=== PATIENT | male | born 1955 | race Caucasian/White ===

== ENCOUNTER 2018-02-04 11:12 | Day surgery (SDC) | payer OTHER ==
[2018-01-30 10:18] LABS: HEMATOCRIT 45.2 % (37.9-51.0); HEMOGLOBIN 15.6 g/dL (13.5-17.0); MEAN CORPUSCULAR HEMOGLOBIN 31.6 pg (27.0-33.4); MEAN CORPUSCULAR HGB CONC 34.4 g/dL (32.0-36.0); MEAN CORPUSCULAR VOLUME 92 fl (80-97); PLATELET COUNT 317 10^3/uL (150-450); RED BLOOD COUNT 4.93 10^6/uL (4.35-5.55); RED CELL DISTRIBUTION WIDTH 12.4 % (11.5-14.0); WHITE BLOOD COUNT 9.5 10^3/uL (4.0-10.5)
[2018-01-30 10:49] LABS: ALANINE AMINOTRANSFERASE 27 U/L (21-72); ALBUMIN 4.1 g/dL (3.5-5.0); ALKALINE PHOSPHATASE 78 U/L (38-126); ANION GAP 9 (5-19); ASPARTATE AMINO TRANSFERASE 21 U/L (17-59); BILIRUBIN,DIRECT 0.2 mg/dL (0.0-0.4); BILIRUBIN,TOTAL 0.5 mg/dL (0.2-1.3); BLOOD UREA NITROGEN 10 mg/dL (7-20); CALCIUM 9.8 mg/dL (8.4-10.2); CARBON DIOXIDE 30 mmol/L (22-30); CHLORIDE 102 mmol/L (98-107); GLUCOSE 90 mg/dL (75-110); POTASSIUM 4.9 mmol/L (3.6-5.0); SODIUM 140.5 mmol/L (137-145); TOTAL PROTEIN 6.2 g/dL (6.3-8.2)
--- NOTE | 2018-01-30 12:28 | RADIOLOGY REPORT (SQ) ---
EXAM DESCRIPTION: CHEST PA/LATERAL COMPLETED DATE/TIME: 01/30/2018 10:32 am REASON FOR STUDY: PRE-OP COMPARISON: None. EXAM PARAMETERS: NUMBER OF VIEWS: two views TECHNIQUE: Digital Frontal and Lateral radiographic views of the chest acquired. RADIATION DOSE: NA LIMITATIONS: none FINDINGS: LUNGS AND PLEURA: There is mild hyperexpansion of the lungs. There are no infiltrates or effusions. No mass is seen. MEDIASTINUM AND HILAR STRUCTURES: No masses or contour abnormalities. HEART AND VASCULAR STRUCTURES: Heart normal size. No evidence for failure. BONES: No acute findings. HARDWARE: None in the chest. OTHER: No other significant finding. IMPRESSION: Mild chronic lung changes with no acute cardiopulmonary disease. TECHNICAL DOCUMENTATION: JOB ID: [id number] [employer]- All Rights Reserved Reading location - IP/workstation name: [email or web address]
--- NOTE | 2018-01-30 21:57 | EKG REPORT ---
SEVERITY:- BORDERLINE ECG - SINUS RHYTHM TALL R WAVE IN V2, CONSIDER RVH OR PMI : Confirmed by: Mary Aguirre 30-Jan-2018 21:56:56
[~2018-02-04 11:12] MED LIST: ACETAMINOPHEN 325 MG TABLET PO PRN; CEFAZOLIN 1 GM/D5W RTU 1 GM/50 ML RTUPB IV PRN; DEXAMETHASONE SOD PHOSPHATE INJ 4 MG/1 ML VIAL ONE; GLYCOPYRROLATE INJ 0.4 MG/2 ML VIAL ONE; KETOROLAC TROMETHAMINE 60 MG/2 ML SDV ONE; LACTATED RINGERS 1000 ML IV PRN; LIDOCAINE 0.5% INJ-PF (5 MG/ML) 50 ML SDV SUBCUT PRN; MIDAZOLAM 2 MG/2 ML INJ IV PRN; ONDANSETRON HCL INJ/PF 4 MG/2 ML SDV ONE; SUCCINYLCHOLINE CHLORIDE INJ 200 MG/10 ML VIAL ONE
[2018-02-04] MEDS ORDERED: LIDOCAINE 2% INJ-PF (20 MG/ML) 10 ML AMPUL ONE (13:15)
[2018-02-04] MEDS ORDERED: EPHEDRINE SULFATE INJ 50 MG/1 ML AMPULE ONE (13:15)
[2018-02-04] MEDS ORDERED: FENTANYL CITRATE INJ/PF 100 MCG/2 ML AMPUL ONE (13:15)
[2018-02-04] MEDS ORDERED: MIDAZOLAM 2 MG/2 ML INJ ONE (13:15)
[2018-02-04] MEDS ORDERED: PROPOFOL INJ 200 MG/20 ML VIAL IV ONE (13:16)
[2018-02-04] MEDS ORDERED: ACETAMINOPHEN 100 ML IV ONE (13:16)
[2018-02-04] MEDS ORDERED: BUPIVACAINE HCL 0.25 % INJ/PF (2.5 MG/1 ML) 30 ML VIAL ONE (13:17)
[2018-02-04] MEDS ORDERED: BUPIVACAINE INJ/PF LIPOSOME/PF 266 MG/20 ML SDV ONE (13:17)
[2018-02-04] MEDS ORDERED: FENTANYL CITRATE INJ/PF 250 MCG/5 ML AMPULE ONE (13:50)
[2018-02-04] MEDS ORDERED: PROMETHAZINE HCL INJ 25 MG/1 ML VIAL IV PRN ×2 (14:13)
[2018-02-04] MEDS ORDERED: MEPERIDINE HCL/PF INJ 25 MG/1 ML DISP.SYRIN IV PRN (14:13)
[2018-02-04] MEDS ORDERED: FENTANYL CITRATE INJ/PF 100 MCG/2 ML AMPUL IV PRN ×3 (14:13)
[2018-02-04] MEDS ORDERED: OXYCODONE-ACETAMINOPHEN 5-325 MG TABLET PO PRN ×3 (14:13→15:07)
[2018-02-04] MEDS ORDERED: ONDANSETRON HCL INJ/PF 4 MG/2 ML SDV IV PRN ×2 (14:13→15:07)
[2018-02-04] MEDS ORDERED: DIPHENHYDRAMINE HCL 50 MG/ML VIAL IV PRN (14:13)
[2018-02-04] MEDS ORDERED: MORPHINE SULFATE 10 MG/ML INJ IV PRN (14:13)
--- NOTE | 2018-02-04 15:07 | Discharge Summary ---
Discharge Summary (SDC) - Discharge Final Diagnosis: Left inguinal hernia Date of Surgery: 02/04/18 Discharge Date: 02/04/18 Condition: Stable Treatment or Instructions: [facility] [address], [place] [address] Discharge Instructions: Open Abdominal Procedures (Hernia, Bowel Surgery) 1.General Information: a. DO NOT DRIVE a car or operative machinery for 1-2 weeks or as long as taking Narcotic pain medication. b. DO NOT consume alcohol, tranquilizers, sleeping medication, or any non- prescribed medication for 24 hours unless approved by your doctor or as long as taking pain medication. c. DO NOT make important decisions or sign any important papers for the first 24 hours after surgery. d. When discharged home the same day as surgery have a responsible person with you the first night. 2.Activity Restriction: 8 weeks; a. Avoid heavy lifting (> 10-15 lbs), straining abdominal muscles and sports, mowing lawn, vacuum home restoration service cleaner and bending over a lot. b. Walking is important to avoid blood clots in the legs and deep breathing can prevent pneumonia. c. If it fine to go for walks, up and down steps, and ride in a car. 3.Treatment: a. You may shower the next day. Do not remove the skin glue, it will fall off on its own. You should not bathe in a tub or go swimming for 2 weeks. c. Do not use oils, powders, or lotion on your incision. 4.Medications: a. You may take narcotic prescription tablets for pain if needed, one every 5 hours (__Toradol__). c. You may resume all normal medications unless a change is specified by your doctors. 5.Diet: a. If going home the same day as surgery start with clear liquids, and if you do well then advance to normal foods low inf fat and protein. Smaller portion size may be jane the first night. b. When discharged after hospital stay you may resume a normal diet. 6.Notify Physician If: a. Pain is not relieved by pain medication b. Persistent nausea and vomiting c. Chills, fever (above 101) d. Persistent bleeding or swelling at the operative site e. Unable to urinate for 6-8 hours f. Increased redness, drainage, or foul smelling discharge from incision 7. Follow Up Care: a. Please call our office to schedule an appointment with your doctor for 2 weeks. In the event of any postoperative problems or questions you may call our office during business hours or the On-Call surgeon through the recordak operator at [facility]. [facility] [phone] [facility] [phone] (Ask for the surgeon e business consultant) b. I understand the instructions for my postoperative care as described above and a copy has been given to me. _ Witness Patient/Significant Other Date Prescriptions: Ketorolac Tromethamine [Toradol 10 mg Tablet] 10 mg PO Q6HP PRN #20 tablet PRN Reason: Referrals: ANIYA MARCUS MD [Primary Care Provider] - Discharge Diet: As Tolerated Discharge Activity: No Lifting Over 10 Pounds, Walk Frequently Report the Following to Your Physician Immediately: Nausea, Vomiting, Fever over 101 Degrees, Unusual Bleeding, Redness, Drainage-Foul Smelling
--- NOTE | 2018-02-04 15:24 | Operative Report ---
Operative Report DATE OF SURGERY: 02/04/18 PREOPERATIVE DIAGNOSIS: Left inguinal hernia symptomatic, reducible POSTOPERATIVE DIAGNOSIS: Double or pantaloon hernia left inguinal region OPERATION: 1. Exploration left inguinal region. 2. Left inguinal herniorrhaphy with large [facility] Prolene hernia system SURGEON: CANDIE GALLEGOS 1ST JACK WINDER: LUKAS SAPP ANESTHESIA: GA TISSUE REMOVED OR ALTERED: None COMPLICATIONS: None ESTIMATED BLOOD LOSS: None INTRAOPERATIVE FINDINGS: see below PROCEDURE: The patient was seen in the preop holding her with a left inguinal area was marked. The patient was then taken to the main operating where general anesthesia was induced. Surgical plan and surgical timeout were conducted. The left inguinal area was prepped and draped in sterile fashion. Hair had been previously clipped. It was anesthetized with quarter percent Marcaine. A standard left inguinal herniorrhaphy incision made approximately 6 cm long. Subcutaneous tissue May's fascia divided with electrocautery. The branching manias vein was ligated but laterally and divided. The external oblique aponeurosis was opened after anesthetizing the deeper tissues with Marcaine. Contents of the inguinal canal mobilized. The genitofemoral and ilioinguinal nerves were identified and preserved throughout the dissection. Mobilization of the prolapsing tissue revealed a direct hernia medial to the epigastric vessels which consisted of large eventration of the floor of the inguinal canal and some fat. In addition there was a indirect hernia which consisted of a large cord lipoma. Therefore had a pantaloon or double inguinal hernia. Both the prolapsing masses were mobilized to the origination points. Direct component, there was no sac to resect. For the indirect component, the lipoma cord was transected at its base and oversewn with a 2-0 Vicryl suture. The floor of the canal, and surrounding structures were cleared of any splayed cremasteric fibers. I opened up the retroperitoneum at the point of origination of the cord lipoma. I got into the retroperitoneal space nicely using blunt and gauze dissection. We then brought onto the field a non- large Prolene hernia system and deployed the inner component into the retroperitoneal cavity; the external component was then trimmed to an appropriate configuration, and stitch with approximately 7 to 8 sutures, 0 PDS, to Poupart ligament and conjoined tendon, again careful to have the nerves in complete visualization. An upside down U was created in the 6 o'clock position of the external component of the mesh to re-create the new internal ring. Once this was achieved, we allowed right testicle to descend back into the right hemiscrotum, and then we closed the external oblique with 2-0 Vicryl suture May's fascia with 3-0 Vicryl suture skin with 3-0 Vicryl, Dermabond glue. Full-strength Exparel deployed into the subcutaneous tissues. Patient tolerated procedure well, extubated, taken recovery in stable condition. The physician registrar assistant, Ms. Resendiz, provided assistance during this case by: Assisting, retracting tissue, instillation of local anesthesia and closure of skin incisions.
[2018-02-04 17:21] VITALS: BP 129/82
== END 2018-02-04 17:05 | disposition home or self-care (01) ==
LOC: OROUT 11:12
PROVIDERS: ATTEND Surgery
DX: K40.90 Unilateral inguinal hernia, without obstruction or gangrene, not specified as recurrent (principal); D17.6 Benign lipomatous neoplasm of spermatic cord; I10 Essential (primary) hypertension; M19.90 Unspecified osteoarthritis, unspecified site; F17.210 Nicotine dependence, cigarettes, uncomplicated; Z79.899 Other long term (current) drug therapy; Z79.1 Long term (current) use of non-steroidal anti-inflammatories (NSAID)
CPT/HCPCS: 93005; 36415; 85027; 80053; 71046; 93010; 49505; C1781; J2250; J0690; J1100; J3490 ×2; J1885; J3010 ×2; J0330; J2405; J2704; J0131; C9290; 830; 88302

== ENCOUNTER → 2020-09-21 | Outpatient (CLI) | payer OTHER ==
[2020-09-21 12:13] LABS: ABSOLUTE EOSINOPHILS # (AUTO) 0.1 10^3/uL (0.0-0.6); ABSOLUTE LYMPHOCYTES (AUTO) 2.6 10^3/uL (0.5-4.7); ABSOLUTE MONOCYTES (AUTO) 0.6 10^3/uL (0.1-1.4); ABSOLUTE NEUT (AUTO) 6.8 10^3/uL (1.7-8.2); BASOPHILS % (AUTO) 0.3 % (0-2); EOSINOPHILS % (AUTO) 0.6 % (0-6); HEMATOCRIT 45.9 % (37.9-51.0); HEMOGLOBIN 15.8 g/dL (13.5-17.0); LYMPHOCYTES % (AUTO) 25.5 % (13-45); MEAN CORPUSCULAR HEMOGLOBIN 32.3 pg (27.0-33.4); MEAN CORPUSCULAR HGB CONC 34.5 g/dL (32.0-36.0); MEAN CORPUSCULAR VOLUME 94 fl (80-97); MONOCYTES % (AUTO) 5.7 % (3-13); PLATELET COUNT 345 10^3/uL (150-450); RED CELL DISTRIBUTION WIDTH 13.2 % (11.5-14.0); SEGMENTED NEUTROPHILS % (AUTO) 67.9 % (42-78); TOTAL CELLS COUNTED % (AUTO) 100 %
[2020-09-21 12:42] LABS: ALBUMIN 4.5 g/dL (3.5-5.0); ALKALINE PHOSPHATASE 92 U/L (38-126); ANION GAP 11 (5-19); ASPARTATE AMINO TRANSFERASE 32 U/L (17-59); BILIRUBIN,DIRECT 0.1 mg/dL (0.0-0.4); BILIRUBIN,TOTAL 0.7 mg/dL (0.2-1.3); BLOOD UREA NITROGEN 12 mg/dL (7-20); CALCIUM 9.9 mg/dL (8.4-10.2); CARBON DIOXIDE 27 mmol/L (22-30); CHLORIDE 98 mmol/L (98-107); CHOLESTEROL 199.49 mg/dL (0-200); GLUCOSE 88 mg/dL (75-110); POTASSIUM 4.4 mmol/L (3.6-5.0); TOTAL PROTEIN 7.1 g/dL (6.3-8.2); TRIGLYCERIDES 105 mg/dL (<150)
[2020-09-21 12:53] LABS: DIRECT LDL 143 mg/dL (<100)
== END ==
LOC: OD 11:12
PROVIDERS: ATTEND Internal Medicine
DX: I10 Essential (primary) hypertension (principal); E78.00 Pure hypercholesterolemia, unspecified; Z79.899 Other long term (current) drug therapy
CPT/HCPCS: 36415; 80053; 80061; 85025

== ENCOUNTER 2020-11-05 16:37 | Emergency (ER) | payer OTHER ==
--- NOTE | 2020-11-05 17:53 | ER Document Report ---
ED Medical Screen (RME) - General Chief Complaint: Psych Problem Stated Complaint: PSYCH EVAL/SUICIDAL IDEATION Time Seen by Provider: 11/05/20 17:49 Primary Care Provider: ANIYA MARCUS MD [Primary Care Provider] - Follow up as needed Mode of Arrival: Ambulatory Information source: Patient, Outside Facility Records - Mobile crisis Notes: 64-year-old male presented to ED for suicidal ideations with the presence of mobile plant and equipment worker. He has had multiple issues in the past of suicidal thoughts and not caring for himself. Sister came and was staying with him for the last 5 days to help him with his bills and get things under control she left yesterday and he was informed today that she was found in the Pending sale to [facility] either last night or this morning. This is exacerbated his thoughts of suicide I have greeted and performed a rapid initial assessment of this patient. A comprehensive ED assessment and evaluation of the patient, analysis of test results and completion of medical decision making process will be conducted by an additional ED providers. TRAVEL OUTSIDE OF THE [place] IN LAST 30 DAYS: No - Related Data Allergies/Adverse Reactions: No Known Allergies Allergy (Verified 11/05/20 17:35) Past Medical History - Social History Chew tobacco use (# tins/day): No Frequency of alcohol use: None - Past Medical History Cardiac Medical History: Reports: Hx Hypertension Denies: Hx Coronary Artery Disease, Hx Heart Attack Pulmonary Medical History: Denies: Hx Asthma, Hx Bronchitis, Hx COPD, Hx Pneumonia Neurological Medical History: Denies: Hx Cerebrovascular Accident, Hx Seizures Musculoskeltal Medical History: Denies Hx Arthritis - Immunizations Hx Diphtheria, Pertussis, Tetanus Vaccination: Yes Physical Exam - Vital signs Vitals: Temp Pulse Resp BP Pulse Ox 98.1 F 75 16 120/67 97 11/05/20 16:41 11/05/20 16:41 11/05/20 16:41 11/05/20 16:41 11/05/20 16:41 Course - Vital Signs Vital signs: Temp Pulse Resp BP Pulse Ox 98.1 F 75 16 120/67 97 11/05/20 16:41 11/05/20 16:41 11/05/20 16:41 11/05/20 16:41 11/05/20 16:41 Doctor's Discharge - Discharge Referrals: ANIYA MARCUS MD [Primary Care Provider] - Follow up as needed
[2020-11-05 19:46] LABS: ABSOLUTE BASOPHILS # (AUTO) 0.1 10^3/uL (0.0-0.2); ABSOLUTE LYMPHOCYTES (AUTO) 2.3 10^3/uL (0.5-4.7); ABSOLUTE MONOCYTES (AUTO) 0.6 10^3/uL (0.1-1.4); ABSOLUTE NEUT (AUTO) 7.9 10^3/uL (1.7-8.2); EOSINOPHILS % (AUTO) 0.3 % (0-6); HEMATOCRIT 41.3 % (37.9-51.0); HEMOGLOBIN 14.9 g/dL (13.5-17.0); MEAN CORPUSCULAR HEMOGLOBIN 33.2 pg (27.0-33.4); MEAN CORPUSCULAR HGB CONC 36.1 g/dL (32.0-36.0); MEAN CORPUSCULAR VOLUME 92 fl (80-97); MONOCYTES % (AUTO) 5.3 % (3-13); PLATELET COUNT 344 10^3/uL (150-450); RED BLOOD COUNT 4.51 10^6/uL (4.35-5.55); RED CELL DISTRIBUTION WIDTH 12.7 % (11.5-14.0); SEGMENTED NEUTROPHILS % (AUTO) 72.4 % (42-78); TOTAL CELLS COUNTED % (AUTO) 100 %
[2020-11-05 20:03] LABS: ALBUMIN 4.4 g/dL (3.5-5.0); ALKALINE PHOSPHATASE 92 U/L (38-126); ANION GAP 7 (5-19); ASPARTATE AMINO TRANSFERASE 50 U/L (17-59); BILIRUBIN,TOTAL 0.9 mg/dL (0.2-1.3); BLOOD UREA NITROGEN 12 mg/dL (7-20); CALCIUM 9.7 mg/dL (8.4-10.2); CARBON DIOXIDE 26 mmol/L (22-30); CHLORIDE 98 mmol/L (98-107); GLUCOSE 79 mg/dL (75-110); POTASSIUM 4.4 mmol/L (3.6-5.0); TOTAL PROTEIN 6.9 g/dL (6.3-8.2)
[2020-11-05 20:04] LABS: ACETAMINOPHEN < 10 ug/mL (10-30); ALCOHOL < 10 mg/dL (NONE DETECTED); SALICYLATE < 1.0 mg/dL (2.0-20.0)
[2020-11-05 20:16] LABS: APPEARANCE,URINE CLEAR; BILIRUBIN,URINE NEGATIVE (NEGATIVE); COLOR,URINE STRAW; GLUCOSE, URINE NEGATIVE (NEGATIVE); KETONES,URINE 20 mg/dL (NEGATIVE); LEUKOCYTE ESTERASE,URINE NEGATIVE (NEGATIVE); NITRITE,URINE NEGATIVE (NEGATIVE); PROTEIN,URINE NEGATIVE (NEGATIVE); URINE SPECIFIC GRAVITY 1.005; UROBILINOGEN,URINE NEGATIVE mg/dL (<2.0)
--- NOTE | 2020-11-05 20:27 | PSYCHOLOGICAL NOTE ---
Psych Note - Psych Note Date seen by psych provider: 11/05/20 Time seen by psych provider: 18:30 Psych Note: Reason for consult: Suicidal ideation Patient arrived to [facility] ED via POV in the company of mobile crisis for concerns of suicidal ideation and being unable to care for himself. Patient confirms he was talking with mobile crisis and disclosed passive suicidal ideation ie no plans, mean or intent. He disclosed that he did not believe he can do all the things that need to get done without his sister. He reports feeling overwhelmed and wants to stay at the hospital. Patient become distraught at learning there is no "72 hour" in the state of [place] and reports he just can't sleep and doesn't know what he is going to do. Patient is alert and orientated to person, place, time and circumstance. Patient is currently suffering from acute grief after finding out his sister committed suicide this morning. Patient reports passive suicidal ideation i.e. no plans means or intent. Delusions are absent and behaviors congruent with an intact reality based presentation i.e. organized and near thought process. Eye contact is fair. Conversational speech is within normal rate, tone and prosody. Patient is well-groomed however does request to take a shower upon arrival to [facility] ED. Patient does have some difficulty staying on topic and dwelling thoughts on losing his sister; this would be congruent with acute stress/bereavement. Attention and concentration is fair. Insight, judgment, impulse control is fair. IVC Criteria per [place] GS 122C Dangerous to others Within the relevant past the individual No has inflicted or attempted to inflict or threatened to inflict serious bodily harm on another AND No that there is a reasonable probability that this conduct will be repeated as there is an absence of supervision or structure to prevent. OR No has acted in such a way as to create a substantial risk of serious bodily harm to another AND No that there is a reasonable probability that this conduct will be repeated as there is an absence of supervision or structure to prevent. OR No has engaged in extreme destruction of property AND NO that there is a reasonable probability that this conduct will be repeated as there is an absence of supervision or structure to prevent. Previous episodes of dangerousness to others, when applicable, may be considered when determining reasonable probability of future dangerous conduct. Clear, cogent, and convincing evidence that an individual has committed a homicide in the relevant past is prima facie evidence of dangerousness to others. Dangerous to self Within the relevant past the individual has done any of the following: acted in such a way as to show ALL of the following: No The individual would be unable without care, supervision, and the continued assistance of others not otherwise available, to exercise self- control, judgment, and discretion in the conduct of the individual's daily responsibilities and social relations or to satisfy the individual's need for nourishment, personal or medical care, penitentiary, or self-protection and safety. AND No There is a reasonable probability of the individual suffering serious physical debilitation within the near future unless adequate treatment is given. A showing of behavior that is grossly irrational, of actions that the individual is unable to control, of behavior that is grossly inappropriate to the situation, or of other evidence of severely impaired insight and judgment shall create a prima facie inference that the individual is unable to care for himself or herself. Patient reports this; however, he is able to ambulate without assistance, there is not evidence that he has not be eating, drinking or bathing himself. Patient asked to take a shower upon arrival even though he appeared well groomed. OR YES has attempted suicide or threatened suicide AND No that there is a reasonable probability of suicide unless adequate treatment is given as there is an absence of supervision or structure to prevent suicide of patient who has made an attempt, serious gesture or threat. Patient reports passive suicidal ideation ie no plans mean or intent. He came in voluntarily. Patient has multiple external agencies assisting him to include D, community paramedics (which has a scheduled home visit with the patient in the morning) in addition to receiving resources for grief from [facility]. OR No has mutilated himself or herself or attempted to mutilate himself or herself AND No that there is a reasonable probability of serious self-mutilation unless adequate treatment is given as there is an absence of supervision or structure to prevent. NOTE: Previous episodes of dangerousness to self, when applicable, may be considered when determining reasonable probability of physical debilitation, suicide, or self-mutilation. Impression\\plan: Patient is cleared from acute psychiatric services. Patient has been assessed by multiple agencies throughout the day after finding out his sister committed suicide this morning. Crisis plans were in place with community paramedics coming to his home to make visits. [facility] was asked to come and provide additional resources however after spending 2 hours with the patient brought the patient to the hospital do to passive suicidal ideation. It is noted the patient had already been evaluated for passive suicidal ideation by Dr. Rausch in the field this morning; there has been no new changes. There was concerns identified by mobile crisis that the patient identified being unable to care for himself. This comment by the patient cannot be supported due to the patient's presentation of being well groomed, asking to take a shower, [facility] and EMS was in the home and did not have concerns that is was unfit or unlivable and current presentation and lab work does not support malnourished and/or dehydrated (per medical). Patient is currently suffer acute grief from finding out his sister committed suicide this morning. Dr. Rausch was consulted to care management of this patient; attending physicians in agreement with recommendations and disposition.
[2020-11-05 20:29] LABS: URINE AMPHETAMINES SCREEN NEGATIVE; URINE BARBITURATES SCREEN NEGATIVE; URINE BENZODIAZEPINES SCREEN NEGATIVE; URINE COCAINE SCREEN NEGATIVE; URINE MARIJUANA (THC) SCREEN NEGATIVE; URINE METHADONE SCREEN NEGATIVE; URINE PHENCYCLIDINE SCREEN NEGATIVE
--- NOTE | 2020-11-05 20:55 | ER Document Report ---
ED General - General Chief Complaint: Psych Problem Stated Complaint: PSYCH EVAL/SUICIDAL IDEATION Time Seen by Provider: 11/05/20 17:49 Primary Care Provider: ANIYA MARCUS MD [Primary Care Provider] - Follow up as needed Mode of Arrival: Ambulatory TRAVEL OUTSIDE OF THE [place] IN LAST 30 DAYS: No - HPI Context: Chief Complaint: [Suicidal ideation] [ This is a 64-year-old male who presents to the emergency department complaining of suicidal ideation. Patient states that he found out that his sister who lives with committed suicide with a self-inflicted gunshot wound yesterday. Patient states "it is my fault" regard to the reason why his sister committed suicide. ] History obtained from [patient] Symptoms began:[Today] Onset: [Sudden] Timing: [Sudden] Quality: [Overwhelming per patient] Intensity: [Severe] Location: [Psychiatric] Radiation: [Denies] [The pain does not migrate to a new location.] Aggravating factors: Sisters recent suicide Relieving factors: [none] [Denies] SOB [Denies] nausea [Denies] vomiting [Denies] sweats [Denies] fever [Denies] cough [Denies] calf or leg swelling or pain - Related Data Allergies/Adverse Reactions: No Known Allergies Allergy (Verified 11/05/20 17:35) Past Medical History - General Information source: Patient, Outside Facility Records - Mobile crisis - Social History Smoking Status: Unknown if Ever Smoked Chew tobacco use (# tins/day): No Frequency of alcohol use: None Family History: Reviewed & Not Pertinent - Past Medical History Cardiac Medical History: Reports: Hx Hypertension Denies: Hx Coronary Artery Disease, Hx Heart Attack Pulmonary Medical History: Denies: Hx Asthma, Hx Bronchitis, Hx COPD, Hx Pneumonia Neurological Medical History: Denies: Hx Cerebrovascular Accident, Hx Seizures Musculoskeletal Medical History: Denies Hx Arthritis - Immunizations Hx Diphtheria, Pertussis, Tetanus Vaccination: Yes Review of Systems - Review of Systems Notes: Review of systems as below unless otherwise stated in HPI. CONSTITUTIONAL [No] fever, [No] chills. EYES [No] eye pain. ENT [No] URI symptoms, [No] sore throat, [No] ear pain. CARDIOVASCULAR [No] chest pain, [No] palpitations, [No] edema. RESPIRATORY [No] Cough, [No] SOB, [No] wheezing. GASTROINTESTINAL [No] abdominal pain, [No] nausea, [No] Diarrhea, [No] Vomiting, [No] constipation, [No] melena, [No] rectal bleeding. GENITOURINARY [No] dysuria, [No] urinary frequency, [No] hematuria, [No] urinary urgency MUSCULOSKELETAL [No] Back pain. SKIN [No] Rash. NEUROLOGIC [No] Headache, [No] recent seizures, [No] paralysis,[No] parathesias. ENDOCRINE [No] polyuria. HEMO/LYMPATIC [No] easy brusing PSYCHIATRIC Positive suicidal ideation, positive anxiety Physical Exam - Vital signs Vitals: Temp Pulse Resp BP Pulse Ox 98.1 F 75 16 120/67 97 11/05/20 16:41 11/05/20 16:41 11/05/20 16:41 11/05/20 16:41 11/05/20 16:41 - Notes Notes: CONSTITUTIONAL [Vital signs reviewed, Patient appears anxious, Alert and oriented X 3, HEAD [Atraumatic, Normocephalic.] EYES [Eyes are normal to inspection, No discharge from eyes, Extraocular muscles intact, Sclera are normal, Conjunctiva are normal.] ENT [External ears normal to inspection, Nose examination normal, Mouth normal to inspection.] NECK [Normal ROM, No jugular venous distention, No meningeal signs, ] RESPIRATORY CHEST [Chest is nontender, Breath sounds normal, No respiratory distress.] CARDIOVASCULAR [RRR, No murmurs, Normal S1 S2, No rub, No gallop.] ABDOMEN [Abdomen is nontender, No pulsatile masses, No other masses, Bowel sounds normal, No distension, No peritoneal signs, No hernias.] BACK [There is no CVA Tenderness, There is no tenderness to palpation, Normal inspection.] UPPER EXTREMITY [Inspection normal, No cyanosis, No clubbing, No edema, LOWER EXTREMITY [Inspection normal, No cyanosis, No clubbing, No edema, No calf tenderness, NEURO [No focal motor deficits, No focal sensory deficits, Speech normal.] SKIN [Skin is warm, Skin is dry, Skin is normal color.] LYMPHATIC [No adenopathy in neck.] PSYCHIATRIC Patient is admitting to suicidal ideation. Patient has a labile affect, tearful at times, tends to ramble and has tangential speech. His thoughts are "jumbled" and he jumps from one different topic to another and seems to have difficulty answering simple straightforward questions. Patient is repeatedly stating that it is his fault that his sister committed suicide and cannot be convinced otherwise. Course - Re-evaluation Re-evalutation: 11/05/20 21:07 Patient is medically cleared. Patient admits to suicidal ideation and seems to be in very acute emotional distress. I believe he is a danger to himself and I am taking out involuntary commitment papers based on my findings. - Vital Signs Vital signs: Temp Pulse Resp BP Pulse Ox 98.4 F 76 20 123/77 94 11/05/20 17:49 11/05/20 17:49 11/05/20 17:49 11/05/20 17:49 11/05/20 17:49 - Laboratory Results Result Diagrams: 11/05/20 19:30 11/05/20 19:30 Laboratory Results Interpreted: 11/05/20 11/05/20 11/05/20 19:30 19:30 19:57 WBC 11.0 H MCHC 36.1 H Sodium 131.0 L Urine Ketones 20 H Urine Blood SMALL H Salicylates < 1.0 L Acetaminophen < 10 L Critical Laboratory Results Reviewed: No Critical Results Attending or Supervising Physician who Reviewed Labs: LYNN BRIDGES IV - Radiology Results Critical Radiology Results Reviewed: No Critical Results - EKG Interpretation by Me Additional EKG results interpreted by me: 11/05/20 21:08 EKG obtained on 11/05/2020 at 2053 hrs. was interpreted by this MD. Findings: Normal sinus rhythm, rate 64, normal axis, SC interval appears to be within normal limits, P waves preceding QRS complexes, QRS complexes appear narrow, QTC is 438, there are no obvious patterns of ST segment elevation, depression or reciprocal changes seen to suggest acute myocardial ischemia or infarction. There is no prior EKG immediately available for comparison. Impression: Normal sinus rhythm with nonspecific ST segments. Discharge - Discharge Clinical Impression: Suicidal ideation, Involuntary commitment Condition: Stable Disposition: OTHER Referrals: ANIYA MARCUS MD [Primary Care Provider] - Follow up as needed
[2020-11-05] MEDS ORDERED: CLONAZEPAM 1 MG TABLET PO ONE (21:01)
--- NOTE | 2020-11-06 06:28 | EKG REPORT ---
SEVERITY:- NORMAL ECG - SINUS RHYTHM : Confirmed by: Pedro Diggs MD 06-Nov-2020 06:27:08
[2020-11-06 17:16] VITALS: BP 104/61
--- NOTE | 2020-11-06 18:34 | PSYCHOLOGICAL NOTE ---
Psych Note - Psych Note Date seen by psych provider: 11/06/20 Time seen by psych provider: 11:30 - 1230 Psych Note: Reason for Consult: Suicidal ideation Check in conducted with patient: Patient continues to express passive suicidal ideation ie no plan, means or intent. Patient discusses his thoughts on grief with the of his sister. Patient confirms he has had contact with external agencies. He reports his major concern is not being able to deal with "all the paperwork" and take care of himself without his sister. Patient's sister lived in [facility]. Patient wants identifies wanting to be cared for. Impression/Plan: Patient is cleared from acute psychiatric services. Patient has multiple external agencies engaged in assisting this patient. He is currently suffering from acute bereavement after the of his sister. He does disclose passive suicidal ideation; this has been evaluated multiple times. Dr. Rausch was consulted on the care and management of this patient; Attending physician is in agreement with recommendations and disposition.
== END 2020-11-06 18:42 | disposition home or self-care (01) ==
LOC: ER 16:37
DX: R45.851 Suicidal ideations (principal); F43.21 Adjustment disorder with depressed mood; F60.9 Personality disorder, unspecified; F41.9 Anxiety disorder, unspecified; I10 Essential (primary) hypertension; Z63.4 Disappearance and death of family member
CPT/HCPCS: 36415; 80053; 80307; 81001; 85025; 93005; 93010; 99285

== ENCOUNTER 2020-11-15 16:27 | Emergency (ER) | payer OTHER ==
--- NOTE | 2020-11-15 16:56 | ER Document Report ---
ED Medical Screen (RME) - General Chief Complaint: Psych Problem Stated Complaint: SUICIDAL IDEATION Time Seen by Provider: 11/15/20 16:39 Primary Care Provider: ANIYA MARCUS MD [Primary Care Provider] - Follow up as needed Mode of Arrival: Ambulatory Information source: Patient Notes: HPI; 64-year-old male history of depression, alcohol abuse, presents the [facility] room complaining of inability to sleep, feeling like "I am losing it". Patient states she has been under significant stress since the middle of September. States his sister committed suicide on November 04 which is making his depression worse. Patient states he is currently to start seeing a therapist yesterday. He comes in the emergency room admitting to suicidal ideation stating "I have a lot of knives at home". He denies any homicidal ideation. Also complaining of constipation and difficulty with bowel movements. Denies any nausea, vomiting. PE: Alert and oriented x3. Psych: Flat affect, appears upset, keeps apologizing for being here. Patient keeps stating "I do not feel like I can do this anymore". Admits to suicidal ideation, stating that he has "multiple knives at home. Denies any previous suicidal attempts. States he has been followed by [facility] for several years. Lungs: Clear to auscultation without rales, rhonchi, wheezes. Heart: Regular rate rhythm without murmurs, rubs, gallops. I have greeted and performed a rapid initial assessment of this patient. A comprehensive ED assessment and evaluation of the patient, analysis of test results and completion of the medical decision making process will be conducted by additional ED providers. I have specifically instructed the patient or family members with the patient to immediately return to any nursing staff should anything change in the patient's condition or with their chief complaint. TRAVEL OUTSIDE OF THE [place] IN LAST 30 DAYS: No - Related Data Allergies/Adverse Reactions: No Known Allergies Allergy (Verified 11/15/20 16:38) Past Medical History - Past Medical History Cardiac Medical History: Reports: Hx Hypertension Denies: Hx Coronary Artery Disease, Hx Heart Attack Pulmonary Medical History: Denies: Hx Asthma, Hx Bronchitis, Hx COPD, Hx Pneumonia Neurological Medical History: Denies: Hx Cerebrovascular Accident, Hx Seizures Musculoskeltal Medical History: Denies Hx Arthritis - Immunizations Hx Diphtheria, Pertussis, Tetanus Vaccination: Yes Physical Exam - Vital signs Vitals: Temp Pulse Resp BP Pulse Ox 98.7 F 62 18 116/76 98 11/15/20 16:38 11/15/20 16:38 11/15/20 16:38 11/15/20 16:38 11/15/20 16:38 Course - Vital Signs Vital signs: Temp Pulse Resp BP Pulse Ox 98.7 F 62 18 116/76 98 11/15/20 16:38 11/15/20 16:38 11/15/20 16:38 11/15/20 16:38 11/15/20 16:38 Doctor's Discharge - Discharge Referrals: ANIYA MARCUS MD [Primary Care Provider] - Follow up as needed
--- NOTE | 2020-11-15 18:17 | RADIOLOGY REPORT (SQ) ---
EXAM DESCRIPTION: KUB/ABDOMEN (SINGLE VIEW) IMAGES COMPLETED DATE/TIME: 11/15/2020 6:06 pm REASON FOR STUDY: constipation COMPARISON: None. NUMBER OF VIEWS: One view. TECHNIQUE: Supine radiographic image of the abdomen acquired. LIMITATIONS: None. FINDINGS: BOWEL GAS PATTERN: Nonobstructive gas pattern. There is stool in the rectum and right col on predominantly. CALCIFICATIONS: No suspicious calcifications. SOFT TISSUES: No gross mass or suggestion of organomegaly. HARDWARE: None in the abdomen. BONES: No acute fracture. No worrisome bone lesions. OTHER: No other significant finding. IMPRESSION: Constipation. Moderate stool burden. TECHNICAL DOCUMENTATION: JOB ID: [id number] 2010 [employer]- All Rights Reserved Reading location - IP/workstation name: [email or web address]
[2020-11-15 18:51] LABS: APPEARANCE,URINE CLEAR; BILIRUBIN,URINE NEGATIVE (NEGATIVE); COLOR,URINE YELLOW; GLUCOSE, URINE NEGATIVE (NEGATIVE); KETONES,URINE NEGATIVE (NEGATIVE); LEUKOCYTE ESTERASE,URINE NEGATIVE (NEGATIVE); NITRITE,URINE NEGATIVE (NEGATIVE); PROTEIN,URINE NEGATIVE (NEGATIVE); URINE SPECIFIC GRAVITY 1.017
[2020-11-15 18:53] LABS: ABSOLUTE EOSINOPHILS # (AUTO) 0.1 10^3/uL (0.0-0.6); ABSOLUTE LYMPHOCYTES (AUTO) 2.8 10^3/uL (0.5-4.7); ABSOLUTE MONOCYTES (AUTO) 0.6 10^3/uL (0.1-1.4); ABSOLUTE NEUT (AUTO) 8.2 10^3/uL (1.7-8.2); BASOPHILS % (AUTO) 0.3 % (0-2); EOSINOPHILS % (AUTO) 0.6 % (0-6); HEMOGLOBIN 14.9 g/dL (13.5-17.0); LYMPHOCYTES % (AUTO) 23.7 % (13-45); MEAN CORPUSCULAR HEMOGLOBIN 32.2 pg (27.0-33.4); MEAN CORPUSCULAR HGB CONC 34.6 g/dL (32.0-36.0); MEAN CORPUSCULAR VOLUME 93 fl (80-97); MONOCYTES % (AUTO) 5.3 % (3-13); PLATELET COUNT 349 10^3/uL (150-450); RED BLOOD COUNT 4.62 10^6/uL (4.35-5.55); SEGMENTED NEUTROPHILS % (AUTO) 70.1 % (42-78); TOTAL CELLS COUNTED % (AUTO) 100 %; WHITE BLOOD COUNT 11.6 10^3/uL (4.0-10.5)
[2020-11-15 19:06] LABS: URINE AMPHETAMINES SCREEN NEGATIVE; URINE BARBITURATES SCREEN NEGATIVE; URINE BENZODIAZEPINES SCREEN NEGATIVE; URINE COCAINE SCREEN NEGATIVE; URINE MARIJUANA (THC) SCREEN NEGATIVE; URINE METHADONE SCREEN NEGATIVE; URINE PHENCYCLIDINE SCREEN NEGATIVE
[2020-11-15 19:09] LABS: ALBUMIN 4.1 g/dL (3.5-5.0); ALKALINE PHOSPHATASE 92 U/L (38-126); ANION GAP 7 (5-19); ASPARTATE AMINO TRANSFERASE 41 U/L (17-59); BILIRUBIN,DIRECT 0.1 mg/dL (0.0-0.4); BILIRUBIN,TOTAL 0.3 mg/dL (0.2-1.3); BLOOD UREA NITROGEN 13 mg/dL (7-20); CALCIUM 9.4 mg/dL (8.4-10.2); CARBON DIOXIDE 30 mmol/L (22-30); CHLORIDE 98 mmol/L (98-107); GLUCOSE 80 mg/dL (75-110); POTASSIUM 4.4 mmol/L (3.6-5.0); TOTAL PROTEIN 6.4 g/dL (6.3-8.2)
[2020-11-15 19:14] LABS: ACETAMINOPHEN < 10 ug/mL (10-30); ALCOHOL < 10 mg/dL (NONE DETECTED); SALICYLATE < 1.0 mg/dL (2.0-20.0)
--- NOTE | 2020-11-15 20:03 | ER Document Report ---
ED General <LUKAS IBRAHIM - Last Filed: 11/15/20 20:07> - General Mode of Arrival: Ambulatory TRAVEL OUTSIDE OF THE [place] IN LAST 30 DAYS: No <MICHELA HICKEY - Last Filed: 11/15/20 20:52> - General Chief Complaint: Abdominal Cramping Stated Complaint: SUICIDAL IDEATION Time Seen by Provider: 11/15/20 16:39 Primary Care Provider: [facility] [Outside] - Follow up as needed [facility] [Outside] - Follow up as needed ANIYA MARCUS MD [Primary Care Provider] - Follow up as needed - [facility] Notes: Patient is a 64-year-old gentleman who presents emergency department for evaluation. He states he was having some suicidal thoughts. He had no specific plan, but he states "I have a lot of knives at the house." He has had no history of suicide attempts. He was seen here recently, once a day for 5 days, states he did not really feel like it helped. He talked to his DSS worker, and got the impression that if he did not come in here to be voluntarily evaluated that involuntary orders might be placed. The patient denies any homicidal ideation. No visual or auditory hallucination. He states he does want help. He does not want to go back to [place]. Patient is also concerned because he has some constipation. He has not had a good bowel movement in the last several days. He is concerned "that my bowels are paralyzed." He has intermittent abdominal cramping. He also states he has a clear liquid that occasionally sleeps from his rectum and he became concerned about that. He tried 1 dose of Ex-Lax which did not help his constipation. He cannot give me a timeline for most of this but states is been at least a month. (MICHELA HICKEY) - Related Data Allergies/Adverse Reactions: No Known Allergies Allergy (Verified 11/15/20 16:38) Past Medical History - General Information source: Patient - Social History Smoking Status: Unknown if Ever Smoked Family History: Reviewed & Not Pertinent Patient has homicidal ideation: No - Past Medical History Cardiac Medical History: Reports: Hx Hypertension Denies: Hx Coronary Artery Disease, Hx Heart Attack Pulmonary Medical History: Denies: Hx Asthma, Hx Bronchitis, Hx COPD, Hx Pneumonia Neurological Medical History: Denies: Hx Cerebrovascular Accident, Hx Seizures Musculoskeletal Medical History: Denies Hx Arthritis Psychiatric Medical History: Reports: Hx Anxiety, Hx Depression - Immunizations Hx Diphtheria, Pertussis, Tetanus Vaccination: Yes <MICHELA HICKEY - Last Filed: 11/15/20 20:52> Review of Systems - Review of Systems Constitutional: No symptoms reported EENT: No symptoms reported Cardiovascular: No symptoms reported Respiratory: No symptoms reported Gastrointestinal: See HPI Genitourinary: No symptoms reported Musculoskeletal: No symptoms reported Skin: No symptoms reported Neurological/Psychological: See HPI <ABHISHEK HICKEYAISHA Ryan - Last Filed: 11/15/20 20:52> Physical Exam <STEPHANYANDREAMICHELA Ryan - Last Filed: 11/15/20 20:52> - Vital signs Vitals: Temp Pulse Resp BP Pulse Ox 98.7 F 62 18 116/76 98 11/15/20 16:38 11/15/20 16:38 11/15/20 16:38 11/15/20 16:38 11/15/20 16:38 - Notes Notes: This is a 64-year-old gentleman who appears his stated age. He is very anxious, paces [id number] throughout the room. He apologizes for being here, then becomes extremely concerned about the medical questions he has had over the last several months. Vital signs reviewed, please refer to chart. Head is normocephalic, atraumatic. Pupils equal round, reactive to light. Neck is supple without meningismus. Heart is regular rate and rhythm. Lungs are clear to auscultation bilaterally. Abdomen is soft, nontender, normoactive bowel sounds throughout. Extremities without cyanosis, clubbing. Posterior calves are nontender. Peripheral pulses are equal. Skin is warm and dry. Patient is awake, alert, neurological exam is nonfocal. Rectal exam is performed with EBONI Dowell, present as senior marketing associate. Patient has good rectal tone. Extensive redundant tissue consistent with external hemorrhoids. No sign of thrombosis or induration. (STEPHANYANDREAMICHELA Davis) Course - Laboratory Results Result Diagrams: 11/15/20 17:55 11/15/20 17:55 <LUKAS IBRAHIM - Last Filed: 11/15/20 20:07> - Laboratory Results Result Diagrams: 11/15/20 17:55 11/15/20 17:55 Critical Laboratory Results Reviewed: No Critical Results - Radiology Results Critical Radiology Results Reviewed: No Critical Results <MICHELA HICKEY - Last Filed: 11/15/20 20:52> - Re-evaluation Re-evalutation: 11/15/20 19:59 Patient presents to the emergency department for evaluation. He was initially seen through triage. He had laboratory investigations and KUB ordered. KUB reveals constipation. I assured the patient I did not see any signs of "bowel paralysis." I explained to him that depression, different medications, decreased physical activity can cause constipation, and he is only had issues for the short-term. I will give him some magnesium citrate and told him if his symptoms persist he should follow-up with GI. He voiced understanding. In regards to his suicidality, it seems to be only passive. He is interested in getting help but only from certain resources. The psychosocial team is currently evaluating options for this patient. I do believe this patient is safe for discharge. Otherwise I will give him some magnesium citrate and instructions on constipation and hemorrhoids. He is to return to the ED with worsening. (MICHELA HICKEY) - Vital Signs Vital signs: Temp Pulse Resp BP Pulse Ox 98.7 F 62 18 116/76 98 11/15/20 16:38 11/15/20 16:38 11/15/20 16:38 11/15/20 16:38 11/15/20 16:38 - Laboratory Results Laboratory Results Interpreted: 11/15/20 11/15/20 11/15/20 17:55 17:55 17:55 WBC 11.6 H Sodium 134.5 L Urine Urobilinogen 2.0 H Salicylates < 1.0 L Acetaminophen < 10 L - Radiology Results Radiology Results Interpreted: 11/15/20 20:02 KUB X-Ray 11/15/20 16:58 IMPRESSION: Constipation. Moderate stool burden. (MICHELA HICKEY) - EKG Interpretation by Me Additional EKG results interpreted by me: 11/15/20 20:04 Sinus mechanism with a rate of 65 bpm. Normal axis and intervals. No acute ST changes concerning for ischemia or infarction. No old studies immediately available for comparison. (MICHELA HICKEY) Discharge <LUKAS IBRAHIM - Last Filed: 11/15/20 20:07> <MICHELA HICKEY - Last Filed: 11/15/20 20:52> - Discharge Clinical Impression: Suicidal ideation Condition: Stable Disposition: HOME, SELF-CARE Instructions: Constipation ([facility]), Hemorrhoids ([facility]), Suicidal Ideation ([facility]) Additional Instructions: Please follow-up with primary care in 1 to 2 weeks. If your symptoms persist you may need referral on to gastroenterology. Return to the ED with worsening. You have been evaluated by both medical and behavioral health teams for anxiety and suicidal ideations. You have been deemed appropriate for discharge. While in the emergency department you received the following services/or had access to: Medical screening and assessment, nursing services, dietary services, pharmacological services, one-on-one counseling and/or psychotherapy, environmental services, and continuous observation by a patient safety coordinator. You should continue your home medications as prescribed and follow up with your medication provider. Suicidal Ideation Suicidal ideation is a common medical term for thoughts about suicide, which may be as detailed as a formulated plan, without the suicidal act itself. Although most people who undergo suicidal ideation do not commit suicide, some go on to make suicide attempts. The range of suicidal ideation varies greatly from fleeting to detailed planning, role playing, and unsuccessful attempts. While thoughts about suicide are common, most people do not carry out serious actions to commit suicide. However, based upon your evaluation and discussion with you, we believe you are not currently at risk to act upon your thoughts of suicide. Therefore, you will be discharged home. Follow up care: You are currently involved in medication management with [facility], and are highly recommended to continue, until a new provider is established. You are recommended to do a walk in appointment tomorrow morning and ask to see a provider regarding your medications. You are also recommended to request outpatient therapy with [facility] or a new provider in the community. You present with much anxiety and have recently experienced loss and would benefit from weekly therapy sessions. Another referral was made for you for community paramedics. You have been given a community outpatient referral list to include phone numbers for [facility] and [facility] mobile crisis. If you experience worsening or a significant change in your symptoms, notify the physician immediately, utilize mobile crisis, or return to the Emergency Department at any time for re- evaluation. Dr. Rausch was consulted to care management of this patient; attending physicians in agreement with recommendations and disposition. Referrals: ANIYA MARCUS MD [Primary Care Provider] - Follow up as needed [facility] [Outside] - Follow up as needed [facility] [Outside] - Follow up as needed
[2020-11-15] MEDS ORDERED: MAGNESIUM CITRATE 296 ML BOTTLE PO ONE (20:05)
--- NOTE | 2020-11-15 20:07 | PSYCHOLOGICAL NOTE ---
Psych Note - Psych Note Date seen by psych provider: 11/15/20 Time seen by psych provider: 17:37 Psych Note: Reason for Consult: suicidal ideation [id number] Patient is a 64 year old male who was admitted to the ED via EMS for concerns of suicidal ideation. Patient was seen in the ED on 11.05.2020 for suicidal ideations and was discharged with multiple community resources. Patient reports his sister committed suicide on 11.04.2020 and Reena, his APS social economist (involved since yesterday), told him to come to the ED. He reports his APS social economist insisted he come or he would have to come involuntarily. Patient reports physical complaints such as issues with bowel movements and ear pain. He was informed clinician is with behavioral health. When asked about suicidal ideations, he states, I just dont want to go on anymore. I am a burden. When asked if he had a plan, he states, I have knives. When asked what he would do with the knives, he states, Probably slit my wrist. When asked if he had the motivation to do so, patient replies, I believe so. He reports poor concentration and anxiety. When asked why patient has not attempted suicide if he has knives in his home and he replies, Because I do not know what I am doing. I cannot concentrate. When asked if he is taking medications as prescribed, he reports I believe so and later reports yes. Patient is prescribed Celexa and Doxepin from [facility] and has a follow up appointment this month. He reports if going home this evening he might kill himself. He demonstrates future forward goal oriented thinking as he discusses plans with his sisterga yu and plans for her estate. Checked back in with patient. He reports he does not want to go to [facility]. When reported he came here voluntarily and does not meet IVC criteria, he is able to voluntarily able to attempt to check self into an inpatient facility voluntarily. He reports he does not want to go back to [facility]. He states he was forced to come here. He reports he was going to have to come voluntarily or involuntarily. He states he does not think he can take care of himself. He was reminded that he came to the ED for a psychiatric evaluation and does not meet criteria for IVC. He presents with appropriate hygiene and grooming. He was reminded again he is able to go to [facility] or any other inpatient facility and try to be admitted for depression and passive SI. Patient then states he wants to get a new doctor. At this time he was recommended to use the resource list provided and make a new appointment, however keep his status with [facility] until able to find a new provider. He then states he cannot because he tried once in the past and they are only working virtually and he does not have means to make this happen. Patient was then recommended to do a walk-in medication appointment with [facility] tomorrow. Patient was alert and oriented to self, person, place, time and situation. Mood was anxious with congruent affect. He reports current passive suicidal ideation; he denies intent and motivation to do so. Patient did not appear to be responding to internal stimuli as evidenced by fair eye contact and answering questions appropriately when addressed. Thought processes are linear and organized. Conversational speech was within normal limits for rate, tone and prosody. Intellectual abilities are estimated to be average. Insight and judgment are poor as evidenced by wanting to remain in the ED when he is voluntary and able to get help voluntarily. He continues to add to list of complaints when told he is going to be discharged. Impulse control is fair as evidenced by coming to the ED and not acting on his SI. Patient engages appropriately. He demonstrates future forward goal oriented thinking as he talks about plans for his sisters gigi and planning to follow up with [facility]. Clinical Presentation: passive suicidal ideations; denies intent; anxiety IVC Criteria per [place] 122C Dangerous to others Within the relevant past the individual No has inflicted or attempted to inflict or threatened to inflict serious bodily harm on another AND No that there is a reasonable probability that this conduct will be repeated. OR No has acted in such a way as to create a substantial risk of serious bodily harm to another AND No that there is a reasonable probability that this conduct will be repeated. OR No has engaged in extreme destruction of property AND NO that there is a reasonable probability that this conduct will be repeated. Previous episodes of dangerousness to others, when applicable, may be considered when determining reasonable probability of future dangerous conduct. Clear, cogent, and convincing evidence that an individual has committed a homicide in the relevant past is prima facie evidence of dangerousness to others. Dangerous to self Within the relevant past the individual has done any of the following: acted in such a way as to show ALL of the following: No The individual would be unable without care, supervision, and the continued assistance of others not otherwise available, to exercise self- control, judgment, and discretion in the conduct of the individual's daily responsibilities and social relations or to satisfy the individual's need for nourishment, personal or medical care, alf, or self-protection and safety. AND No There is a reasonable probability of the individual suffering serious physical debilitation within the near future unless adequate treatment is given. A showing of behavior that is grossly irrational, of actions that the individual is unable to control, of behavior that is grossly inappropriate to the situation, or of other evidence of severely impaired insight and judgment shall create a prima facie inference that the individual is unable to care for himself or herself. Patient reports this; however, he is able to ambulate without assistance, there is not evidence that he has not been eating, drinking or bathing himself. OR Yes has attempted suicide or threatened suicide Passive suicidal ideations; denies intent; AND No that there is a reasonable probability of suicide unless adequate treatment is given as there is an absence of supervision or structure to prevent suicide of patient who has made an attempt, serious gesture or threat. Patient reports passive suicidal ideation ie no means or intent. He came in voluntarily and is asking for help. Patient has multiple external agencies assisting him to include [facility], community paramedics, he received resources for grief from [facility] (1.5 weeks ago), and APS social economist involved OR No has mutilated himself or herself or attempted to mutilate himself or herself AND No that there is a reasonable probability of serious self-mutilation unless adequate treatment is given. NOTE: Previous episodes of dangerousness to self, when applicable, may be considered when determining reasonable probability of physical debilitation, suicide, or self-mutilation. Impression\plan: Patient is cleared from psychiatric services. Patient was admitted to the ED voluntarily for passive suicidal ideations. He denies means and intent. When asked he makes vague statements such as I guess I would or I believe I would. Patient came into the ED stating his social economist told him to come and he does not feel like he can go on anymore. As the assessment went on, patient continued to make statements about being constipated and having a wound on his ear. Patient was gently guided back to the psychiatric assessment and states he ultimately wants a new doctor as he has been seeing Dr. Torrez (female) at [facility] for a really long time. Each time a recommendation was made to assist patient in reaching his goals, he came up with a barrier in which was not something that would actually prevent him from receiving the care he needs. Patient was recommended to use resource list to reach out to a new medication management provider and states he cannot because he has tried once in the past. He states he cannot just stop going to [facility] without notice. He was recommended to continue with [facility] until new services are established, IF he wants to pursue a new doctor. Patient was recommended to walk to [facility] and attempt to be admitted voluntarily for depression, anxiety, and passive SI, however states he does not want to go there. He was recommended to walk into [facility] in the morning for a medication check appointment and request changes if he feels his medications are not effective. Community resource sheet was given to patient for outpatient providers in the area, information for [facility], and information for [facility]. He was seen in the ED on 11.05 and at this time, he had been assessed by multiple agencies throughout the day after finding out his sister committed suicide that morning. Crisis plans were in place with community paramedics coming to his home to make visits. An additional referral to community paramedics has been made this evening. Patient is currently suffer acute grief from finding out his sister committed suicide. Patient came to the ED voluntarily for an assessment and if he continues to want additional help is recommended to call [facility]. There are options to assist patient, on a voluntary level, and he is choosing to not use them. Patient plans to follow up with [facility]. He demonstrates future forward goal oriented thinking as he talks about plans for his sisters ashes and wanting to get a new doctor. Dr. Rausch was consulted to care management of this patient; attending physicians in agreement with recommendations and disposition.
[2020-11-15 21:07] VITALS: BP 117/65
--- NOTE | 2020-11-15 23:29 | EKG REPORT ---
SEVERITY:- NORMAL ECG - SINUS RHYTHM : Confirmed by: Mary Aguirre 15-Nov-2020 23:29:09
== END 2020-11-15 21:31 | disposition home or self-care (01) ==
LOC: ER 16:27
DX: R45.851 Suicidal ideations (principal); K59.00 Constipation, unspecified; F43.21 Adjustment disorder with depressed mood; F32.9 Major depressive disorder, single episode, unspecified; I10 Essential (primary) hypertension; F41.9 Anxiety disorder, unspecified; Z79.899 Other long term (current) drug therapy; Z63.4 Disappearance and death of family member
CPT/HCPCS: 93005; 99285; 36415; 80307 ×4; 85025; 80053; 81001; 74018; 93010; J3490